=== PATIENT | male | born 1955 | race Caucasian/White ===

== ENCOUNTER 2017-08-07 11:57 | Inpatient (IN) | payer BC ==
[~2017-08-07] VITALS: Ht 172.7 cm; Wt 90.0 kg
[2017-08-07] MEDS ORDERED: LACTATED RINGERS 1,000 ML IV SCH (12:53)
[2017-08-07] MEDS ORDERED: OxyconTIN ER 10 MG TAB.ER PO ONE (13:00)
[2017-08-07] MEDS ORDERED: ACETAMINOPHEN 500 MG TABLET PO ONE (13:00)
[2017-08-07] MEDS ORDERED: GABAPENTIN 300 MG CAPSULE PO ONE (13:00)
[2017-08-07] MEDS ORDERED: PLEASE ENTER HEIGHT AND WEIGHT MC SCH ×2 (13:00→13:30)
[2017-08-07 13:11] VITALS: BP 147/94
[2017-08-07] MEDS ORDERED: INDO50CA PO (13:17)
[2017-08-07] MEDS ORDERED: MIDAZOLAM 1 MG/ML, 2ML ONE (14:34)
[2017-08-07] MEDS ORDERED: FENTANYL PF 250 MCG/5ML ONE (14:34)
[2017-08-07] MEDS ORDERED: PROPOFOL 10 MG/ML, 20ML ONE (16:27)
[2017-08-07] MEDS ORDERED: ONDANSETRON 2MG/ML, 2ML ONE (16:27)
[2017-08-07] MEDS ORDERED: CEFAZOLIN 1,000 MG ONE (16:27)
[2017-08-07] MEDS ORDERED: EPHEDRINE 50 MG/ML, 1ML ONE (16:27)
[2017-08-07] MEDS ORDERED: DEXAMETHASONE 4 MG/ML, 5ML ONE (16:27)
[2017-08-07] MEDS ORDERED: ROPIvacaine/PF 0.2%, 100ML 550 ML (check volume) INJ ONE (16:30)
[2017-08-07] MEDS ORDERED: FENTANYL PF 100 MCG/2ML IV PRN (18:00)
[2017-08-07] MEDS ORDERED: LORazepam 2 MG/ML, 1ML IVPush PRN (18:00)
[2017-08-07] MEDS ORDERED: PROMETHAZINE 25 MG/ML, 1ML IV PRN (18:00)
[2017-08-07] MEDS ORDERED: MEPERIDINE/PF 25MG/0.5ML IVPush PRN (18:00)
[2017-08-07] MEDS ORDERED: DIAZEPAM 5 MG/ML, 2ML IVPush PRN (18:00)
[2017-08-07] MEDS ORDERED: LABETALOL 5MG/ML, 20ML IV PRN (18:00)
[2017-08-07] MEDS ORDERED: MIDAZOLAM 1 MG/ML, 2ML IV PRN (18:00)
[2017-08-07] MEDS ORDERED: hydrALAzine 20 MG/ML, 1ML IV PRN (18:00)
[2017-08-07] MEDS ORDERED: ALBUTEROL/IPRATROPIUM 2.5MG/0.5MG, 3 ML NPPB PRN (18:00)
[2017-08-07] MEDS ORDERED: SCOPOLAMINE PATCH, 1.5MG PATCH.TD72 TD PRN (18:00)
[2017-08-07] MEDS ORDERED: MORPHINE SULFATE 4 MG/ML, 1ML IVPush PRN (18:00)
[2017-08-07] MEDS ORDERED: OXYcodone 5 MG/5 ML ORAL.SOL UDC PO PRN (18:00)
[2017-08-07] MEDS ORDERED: HYDROmorphone 1 MG/ML, 1ML IV PRN (18:00)
[2017-08-07] MEDS ORDERED: ONDANSETRON ODT 8 MG PO PRN (18:00)
[2017-08-07] MEDS ORDERED: EPHEDRINE 50 MG/ML, 1ML IM PRN (18:00)
[2017-08-07] MEDS ORDERED: TRANEXAMIC ACID 100 MG/ML, 10ML ONE (18:09)
[2017-08-07] MEDS ORDERED: SODIUM CHLORIDE 0.9% 1,000 ML IV SCH (20:30)
[2017-08-07] MEDS ORDERED: OXYcodone/APAP 5/325MG TABLET PO PRN (20:30)
[2017-08-07] MEDS ORDERED: ONDANSETRON 2MG/ML, 2ML IV PRN (20:30)
[2017-08-07] MEDS ORDERED: morphine SULFATE 10 MG/ML, 1ML IV PRN (20:30)
[2017-08-07] MEDS ORDERED: CEFAZOLIN PMX 2GM/100ML 100 ML IVPB SCH (20:30)
[2017-08-07] MEDS ORDERED: HYDROcodone/APAP 5/325 TABLET PO PRN (20:30)
[2017-08-07 20:44] VITALS: BP 127/84
[2017-08-07] MEDS: KETOROLAC 30 MG/1 ML IV SCH (21:29)
[2017-08-07 23:39] VITALS: BP 117/72
[2017-08-08] MEDS: CEFAZOLIN PMX 2GM/50ML 50 ML IVPB SCH ×2 (01:04→09:30)
[2017-08-08 03:01] VITALS: BP 120/70
[2017-08-08] MEDS: KETOROLAC 30 MG/1 ML IV SCH (05:38)
[2017-08-08 07:44] VITALS: BP 119/75
[2017-08-08 13:00] VITALS: BP 144/83
== END 2017-08-08 13:16 | disposition home or self-care (01) | DRG 469 ==
LOC: ORIP 12:29 → EDSEX 14:30 → 4NOR 20:12
PROVIDERS: ADMIT Orthopaedic Surgery; ATTEND Orthopaedic Surgery
PROC: 0LSN0ZZ Reposition Right Lower Leg Tendon, Open Approach (ICD-10-PCS; 2017-08-07)
PROC: 3E0T3BZ Introduction of Anesthetic Agent into Peripheral Nerves and Plexi, Percutaneous Approach (ICD-10-PCS; 2017-08-07)
PROC: 0SRF0JZ Replacement of Right Ankle Joint with Synthetic Substitute, Open Approach (ICD-10-PCS; principal; 2017-08-07 14:30)
DX: M19.071 Primary osteoarthritis, right ankle and foot (principal); M62.461 Contracture of muscle, right lower leg; Z82.49 Family history of ischemic heart disease and other diseases of the circulatory system; Z72.89 Other problems related to lifestyle; F17.200 Nicotine dependence, unspecified, uncomplicated; K21.9 Gastro-esophageal reflux disease without esophagitis
CPT/HCPCS: 76001; 93005; J0690; J1100; J1885; J2250; J2405; J2704; J2795; J3010; C1776; J7030; J7120